=== PATIENT | female | born 1980 | race Caucasian/White ===

== ENCOUNTER 2019-08-29 07:00 | Inpatient (IN) | payer OTHER, SELFPAY ==
[2016-09-05 02:28] VITALS: BMI 22.6
[2019-08-29 07:19] VITALS: BMI 22.3
[2019-08-29] MEDS: Lactated Ringers 1,000 ML 50 ML IV (07:45)
[2019-08-29] MEDS: Cefazolin 2 GM in 0.9% Normal Saline 100 ML IV (07:53)
[2019-08-29 08:12] LABS: Absolute Lymphocyte Count 2.05 X10^3/uL (0.83-4.51); Absolute Neutrophil Count 6.5 X10^3/uL (2.0-7.7); Basophil# 0.02 X10^3/uL; Basophil% 0.2 % (0-1); Eosinophil# 0.04 X10^3/uL; Eosinophils% 0.4 % (0-5); Hemoglobin 12.4 g/dL (12.0-15.0); Lymphocyte # 2.05 X10^3/ul (4.0); Lymphocyte % 22.6 % (19-41); Mean Corp Hgb Conc 34.4 g/dL (32-36); Mean Corpuscular Volume 87.2 fL (81-99); Mean Platelet Vol. 10.6 fl (6.2-12.0); Monocyte# 0.45 X10^3/uL; NRBC Flagged by Analyzer 0 % (0-5); Neutrophil # 6.45 X10^3/uL (2.7-7.7); Neutrophil % 71.1 % (47-70); Platelet Count 196 K/mm3 (150-450); RBC Distribution Width CV 12.1 % (11.6-14.6); RBC Distribution Width SD 38.9 fl (35.1-43.9); Red Blood Count 4.13 M/mm3 (4.2-5.4); White Blood Count 9.1 K/mm3 (4.4-11.0)
--- NOTE | 2019-08-29 09:32 | HP.PCM_ITS ---
- Problem List (1) Advanced maternal age (AMA), 40 years or greater Status: Acute (2) History of precipitous delivery Status: Acute (3) SS-A antibody positive Status: Acute (4) Encounter for induction of labor Status: Acute History Date of Admission: 08/29/19 Final MAGGIE: 09/01/19 Final MAGGIE Source: LMP Gestational age: 39 Weeks and 4 Days History of this : This is a 38 year-old, G [4], P [3003], at 39 weeks gestational age. Presents for induction of labor due to advanced maternal age. Offers no complaints today. normal course. Allergies amoxicillin [Amoxicillin] Allergy (Verified 09/05/16 05:13) Rash Home Medications: Home Medications Vits [Prenatabs FA ] 1 tab PO DAILY 11/05/13 Smoking Status: Never smoker Alcohol: None Number of Fetus(es): 1 NST - FHR Rate Baby A Baseline: 125 Variability:: Minimal Accelerations:: 15 x 15 Decelerations:: None NST Reactive:: Yes FHR Category:: Category II Uterine Activity:: Irregular, palpate mild History Past Pregnancies: Past Pregnancies Delivery Date Name GA/ Weeks Outcome Route Wt Sex Labor Length Anesthesia Delivery Location Provider FOB Labs: Mom's Labs & Results 08/29/19 08/29/19 07:45 07:45 WBC 9.1 RBC 4.13 L Hgb 12.4 Hct 36.0 L MCV 87.2 MCH 30.0 MCHC 34.4 RDW Std Deviation 38.9 RDW Coeff of Lauren 12.1 Plt Count 196 MPV 10.6 Immature Gran % (Auto) 0.700 Neut % (Auto) 71.1 H Lymph % (Auto) 22.6 [place] % (Auto) 5.0 Eos % (Auto) 0.4 Baso % (Auto) 0.2 Absolute Neuts (auto) 6.5 Absolute Lymphs (auto) 2.05 Nucleated RBC % 0 Blood Type O NEGATIVE Antibody Screen NEGATIVE Course Did the patient receive Yes care? Labs Blood Type: O RH: NEGATIVE RPR/VDRL/Syphilis Nonreactive Rubella status Immune HbSAg Negative Date Done: 02/19/19 Chlamydia Negative Gonorrhea Negative HIV/AIDS Non-Reactive Group B Strep: Positive Current Obstetrical History Gestational Diabetes No Incompetent Cervix No Infertility No IUGR No Macrosomia No Hypertension/Pre-eclampsia No Placenta Previa/Abruption No PTL/PROM No Uterine anomaly No Oligohydramnios No Polyhydramnios No Multiple gestation No Past Medical History Asthma No Diabetes No Hypertension No Heart disease No Mitral valve prolapse No Neurologic/Seizure disorder/ No Migraines Kidney disease No Liver disease No Varicosities Yes: left leg Clotting disorders/Hx of DVT No Thyroid Dysfunction No Other medical diseases No Psychiatric disorders No Major trauma No Abnormal PAP smear No Sleep apnea No Mammogram in the last 2 years No Social History Marital Status: Alleged father Romulo Freeze Hx Smoking No Smoking Status Never smoker Review of Systems Constitutional: Denies: Chills, Fever, Weight Change HEENT: Denies: Head Aches, Sinus Congestion, Sinus Drainage Cardiovascular: Denies: Chest Pain, Palpitations Respiratory: Denies: Cough, Shortness of breath at rest, Sputum production Gastrointestinal: Denies: Abdominal Pain, Nausea, Vomiting Genitourinary: Denies: Dysuria Neurological: Denies: Numbness, Tingling, Focal weakness Psychiatric: Denies: Anxiety, Depression, Homicidal Ideations, Suicidal Ideations Physical Exam General: Alert, Oriented x3, No apparent distress HEENT: Atraumatic, Normocephalic Cardiovascular: Regular rate, Regular Rhythm, No murmurs Lungs: Clear to auscultation, Normal air movement, No rhonchi, No wheeze Abdomen: Bowel Sounds Present, Gravid Extremities:: No edema Neurological: Deep Tendon Reflexes 2+/4 and Symmetrical. Negative for: Clonus [employer]: Normal external genitalia Estimated gestational size: Appropriate for gestational size Presentation: Cephalic Cervix Dilation (cm): 5 - AROM for moderate amount of clear fluid Station: -1 Effacement (%): 70 Assessment/Plan All Active Problems Advanced maternal age (AMA), 40 years or greater (Acute) History of precipitous delivery (Acute) SS-A antibody positive (Acute) Encounter for induction of labor (Acute) This is a 38 year-old, G [4], P [3003], at 39 weeks gestational age. Category 1 FHT Induction of labor due to Advanced Maternal Age P: 1) Admit to L&D. Routine labs. 2) Reviewed options for induction of labor, patient requesting AROM with nipple stimulation. Does not want to start Pitocin at this time. 3) Planning unmedicated . Positional changes, shower, nitrous oxide 4) notified of patient status and induction of labor. 5) GBS positive. Allergic to Amoxicillin, rash. Will give Ancef for GBS prophylaxis.
--- NOTE | 2019-08-29 13:11 | PN.OBGYN_ITS ---
Subjective: Sitting up at bedside. Feeling some contractions with nipple stimulation but not uncomfortable. at bedside. Objective: 120, moderate variability, accels, Category 1 TOCO: Irregular, mild contractions Cervix: 5.5cm/70%/0 - Physical Exam Vitals/I&O's: Weight: 169 lb Body Mass Index (BMI) 22.3 Intake and Output for Last 24 Hours 08/27/19 08/28/19 08/29/19 23:59 23:59 23:59 Intake Total 316.67 / 316.67 Output Total 550 / 550 Balance -233.33 / -233.33 Laboratory Results 08/29/19 07:45: WBC 9.1, RBC 4.13 L, Hgb 12.4, Hct 36.0 L, MCV 87.2, MCH 30.0, MCHC 34.4, RDW Std Deviation 38.9, RDW Coeff of Lauren 12.1, Plt Count 196, MPV 10.6, Immature Gran % (Auto) 0.700, Neut % (Auto) 71.1 H, Lymph % (Auto) 22.6, [place] % (Auto) 5.0, Eos % (Auto) 0.4, Baso % (Auto) 0.2, Absolute Neuts (auto) 6.5, Absolute Lymphs (auto) 2.05, Nucleated RBC % 0 08/29/19 07:45: Blood Type O NEGATIVE, Antibody Screen NEGATIVE Current Medications Acetaminophen (Tylenol) 325 - 650 mg PO Q4H PRN PRN PRN Reason: Pain Score 1-3/10 Al Hydroxide/Mg Hydroxide (Mylanta Ii) 15 - 30 ml PO Q4H PRN PRN PRN Reason: INDIGESTION Citric Acid/Sodium Citrate (Bicitra) 30 ml PO X1 PRN PRN Reason: Section Lactated Ringer's () 500 mls @ 999 mls/hr IV .Q31M PRN PRN Reason: Epidural Lactated Ringer's () 500 mls @ 999 mls/hr IV .Q31M PRN PRN Reason: Corrective Measures Lactated Ringer's () 1,000 mls @ 50 mls/hr IV .Q20H IVETT Last Infusion: 08/29/19 08:37 Dose: 50 mls/hr Documented by: Oxytocin/Sodium Chloride () 30 units in 500 mls @ 2 mls/hr IV .Q250H IVETT Cefazolin Sodium 2 gm/ Sodium (Chloride) 110 mls @ 150 mls/hr IV Q8H [facility] Last Infusion: 08/29/19 08:37 Dose: Infused Documented by: Nalbuphine HCl (Nubain) 5 - 10 mg IV Q3H PRN PRN PRN Reason: Pain Score 4-10/10 Nalbuphine HCl (Nubain) 5 - 10 mg SC Q3H PRN PRN PRN Reason: Pain Score 4-10/10 Ondansetron HCl (Zofran) 4 mg IV Q4H PRN PRN PRN Reason: NAUSEA Prochlorperazine Edisylate (Compazine Iv) 10 mg IV Q6H PRN PRN PRN Reason: NAUSEA Sodium Chloride () 10 - 40 ml IV X1 PRN PRN Reason: SALINE FLUSH Medical Necessity - Tobacco Use Smoking Status: Never smoker Assessment/Plan A:Induction of labor GBS positive Category 1 FHT P: 1) Discussed with patient option for continued expectant management vs. active management with pitocin. Has tried nipple stimulation without producing regular contraction pattern. Patient tearful as she desired unmedicated . Reviewed risks vs. benefits and options. She is agreeable to pitocin at this time. Emotional support provided. 2) Shower, positional changes, Nitrous oxide for pain relief.
[2019-08-29] MEDS: Oxytocin 30 units/NS 500 ml 30 UNITS/500 ML IV.SOLN IV (13:55)
[2019-08-29] MEDS: Lactated Ringers 500 ML 999 ML IV (16:40)
[2019-08-29] MEDS: Oxytocin 30 units/NS 500 ml 30 UNITS/500 ML IV.SOLN 334 UNITS IV (17:05)
--- NOTE | 2019-08-29 17:50 | PCM.OPRPT ---
Problem List (1) Advanced maternal age (AMA), 40 years or greater Status: Acute (2) History of precipitous delivery Status: Acute (3) SS-A antibody positive Status: Acute (4) Encounter for induction of labor Status: Acute (5) Vaginal delivery Status: Acute (6) Obstetric labial laceration, delivered, current hospitalization Status: Acute Vaginal Delivery Maternal Presentation: Medically Indicated Induction Method of Induction: Amniotomy Amniotic Membrane Rupture Type: Artificial Amniotic Fluid Description: Clear Final MAGGIE: 09/01/19 Final MAGGIE Source: LMP Gestational age: 39 Weeks and 4 Days Date of Procedure: 08/29/19 Pre-Operative Diagnosis: Induction of Labor Post-Operative Diagnosis: Surgery/ Procedure Performed: Spontaneous Vaginal Delivery Type of Anesthesia: None Description of Procedure: Called to hospital with patient feeling urge to push. Cervix 6.5cm. Patient with increased vaginal pressure. Coping well with nitrous oxide. Labored with patient through 2 sets of contractions and patient with strong urge to push. Rapid dilation to complete and +2 station and strong urge to push. of viable male infant over left labial laceration. APGARS 8,9. head delivered spontaneously, shoulders forthcoming. placed on maternal abdomen, spontaneous cry. Mouth and nares wiped for secretion. Delayed cord clamping. Cord clamped and cut after pulsations ceased by father of baby. Pitocin started for active 3rd stage management. Placenta delivered spontaneously, intact, 3 vessel cord via altaf. Fundus firm. Perineum inspected and revealed left labial laceration, repaired without analgesia with 3.0 rapide, tolerated well. Hemostasis achieved, EBL 200ml. Mom and baby stable, family bonding well. Planning to breastfeed. notified of patient status. Presentation: Vertex Placental Delivery Description: Spontaneous Placenta Disposition: [facility] Cord Vessel Description: 3 Vessels Cord Entanglement: None Estimated Blood Loss: 200ml A gender: Male (1 minute): 8 (5 minute): 9 Episiotomy Description: None Laceration: Perineal Extension/lac - left labial laceration Medications given after delivery: IV Pitocin Complications: None
[2019-08-29 19:40] VITALS: BP 138/74; PULSE 86; RESP 16; TEMP 37.2
[2019-08-29] MEDS: 0.9% Saline Lock 10 ML Syringe IV (19:45)
[2019-08-30] VITALS: BP 119/58; PULSE 76; RESP 16; TEMP 36.7
[2019-08-30 03:52] VITALS: BP 126/66; PULSE 86; RESP 16; TEMP 37.2
[2019-08-30 06:00] LABS: Hematocrit 35.2 % (37-47); Hemoglobin 12.2 g/dL (12.0-15.0); Mean Corp Hgb Conc 34.7 g/dL (32-36); Mean Corpuscular Hgb 30.5 pg (27.0-32.0); Mean Platelet Vol. 10.1 fl (6.2-12.0); Platelet Count 176 K/mm3 (150-450); RBC Distribution Width CV 12.2 % (11.6-14.6); RBC Distribution Width SD 39.1 fl (35.1-43.9); White Blood Count 10.7 K/mm3 (4.4-11.0)
[2019-08-30 08:00] VITALS: BP 122/72; PULSE 64; RESP 12; TEMP 36.6
[2019-08-30 12:00] VITALS: BP 111/75; PULSE 65; RESP 16; TEMP 36.6
[2019-08-30 16:00] VITALS: BP 120/76; PULSE 77; RESP 16; TEMP 36.4
--- NOTE | 2019-08-30 18:20 | PCM.PN.OB ---
Patient Problems: Active and Suspected Problems Advanced maternal age (AMA), 40 years or greater (Acute) History of precipitous delivery (Acute) SS-A antibody positive (Acute) Encounter for induction of labor (Acute) Vaginal delivery (Acute) Obstetric labial laceration, delivered, current hospitalization (Acute) Subjective: Doing well per patient and nursing staff. Ambulating and taking PO without difficulty. Voiding and passing flatus. without difficulty. Planning D/C home tomorrow. - Physical Exam Vitals/I&O's: Vital Signs Temp Pulse Resp BP 97.6 F L 77 16 120/76 08/30/19 16:00 08/30/19 16:00 08/30/19 16:00 08/30/19 16:00 Oxygen Delivery Method Room Air Weight: 169 lb Body Mass Index (BMI) 22.3 Intake and Output for Last 24 Hours 08/28/19 08/29/19 08/30/19 23:59 23:59 23:59 Intake Total 1632.12 / 1632.12 Output Total 550 / 550 Balance 1082.12 / 1082.12 General: Alert, Oriented x3 HEENT: Atraumatic, Normocephalic Neck: Trachea Midline Lungs: Clear to auscultation, Normal air movement, No rhonchi, No wheeze Cardiovascular: Regular rate, Regular Rhythm, No murmurs Abdomen: Soft, - - Fundus firm 2 below U Extremities: No edema Psych/Mental Status: Normal Affect, Appropriate Laboratory Results 08/30/19 05:50: WBC 10.7, RBC 4.00 L, Hgb 12.2, Hct 35.2 L, MCV 88.0, MCH 30.5, MCHC 34.7, RDW Std Deviation 39.1, RDW Coeff of Lauren 12.2, Plt Count 176, MPV 10.1 08/30/19 05:50: Screen NEGATIVE, Baby's Blood Type O POSITIVE, Baby's KAT NEGATIVE Current Medications Acetaminophen (Tylenol) 1,000 mg PO Q8H PRN PRN PRN Reason: Pain Score 1-3/10 Bisacodyl (Dulcolax) 10 mg RECTAL UD PRN PRN Reason: If no BM Dextrose (D50w Syringe) 0 gm IV X1 PRN; Protocol PRN Reason: Hypoglycemia Dibucaine (Dibucaine) 1 applic TOPICAL TID PRN PRN; Protocol PRN Reason: Discomfort Glucagon () 1 mg IM .X1 PRN PRN Reason: Hypoglycemia Hydrocortisone (Hytone) 1 applic TOPICAL TID PRN PRN; Protocol PRN Reason: Discomfort Ibuprofen (Motrin) 600 mg PO Q6H PRN PRN PRN Reason: Pain Score 1-3/10 Methylergonovine Maleate (Methergine) 0.2 mg IM X1 PRN PRN Reason: Excess bleeding/uterine atony Ondansetron HCl (Zofran) 4 mg IV Q4H PRN PRN PRN Reason: Nausea Multivit/Folic Acid/Iron (Prenatabs Fa) 1 tablet PO DAILY@1200 IVETT Last Admin: 08/30/19 14:56 Dose: Not Given Documented by: Senna/Docusate Sodium (Senokot-S, Yessi-Colace) 1 - 2 tablet PO DAILY PRN PRN PRN Reason: Constipation Simethicone (Mylicon) 80 mg PO PCHS PRN PRN Reason: Indigestion/Stomach pain Sodium Chloride () 5 - 15 ml IV UD PRN PRN Reason: SALINE FLUSH Last Admin: 08/29/19 19:45 Dose: 5 ml Documented by: Medical Necessity - Tobacco Use Smoking Status: Never smoker Assessment/Plan All Active Problems Advanced maternal age (AMA), 40 years or greater (Acute) History of precipitous delivery (Acute) SS-A antibody positive (Acute) Encounter for induction of labor (Acute) Vaginal delivery (Acute) Obstetric labial laceration, delivered, current hospitalization (Acute) A:PPD #1 P: 1) Routine care 2) Hgb stable 3) Planning D/C home tomorrow 4) Pain management
[2019-08-30 20:20] VITALS: BP 120/72; PULSE 87; RESP 18; TEMP 36.5; O2SAT 96
[2019-08-31 01:37] VITALS: BP 107/56; PULSE 65; RESP 14; TEMP 36.4
[2019-08-31 08:36] VITALS: BP 109/74; PULSE 89; RESP 18; TEMP 36.4
--- NOTE | 2019-08-31 11:34 | PCM.PN.OB ---
Patient Problems: Active and Suspected Problems Advanced maternal age (AMA), 40 years or greater (Acute) History of precipitous delivery (Acute) SS-A antibody positive (Acute) Encounter for induction of labor (Acute) Vaginal delivery (Acute) Obstetric labial laceration, delivered, current hospitalization (Acute) Subjective: Doing well per patient and nursing staff. Ambulating and taking PO without difficulty. Ambulating and taking PO without difficulty. Voiding and passing flatus. Pain controlled. Denies chest pain, shortness of breath, leg pain, increased vaginal bleeding or clots. without difficulty. Planning D/C home today. - Physical Exam Vitals/I&O's: Vital Signs Temp Pulse Resp BP Pulse Ox 97.6 F L 89 18 109/74 96 08/31/19 08:36 08/31/19 08:36 08/31/19 08:36 08/31/19 08:36 08/30/19 20:20 Oxygen Delivery Method Room Air Weight: 169 lb Body Mass Index (BMI) 22.3 Intake and Output for Last 24 Hours 08/29/19 08/30/19 08/31/19 23:59 23:59 23:59 Intake Total 1632.12 / 1632.12 Output Total 550 / 550 Balance 1082.12 / 1082.12 General: Alert, Oriented x3, Cooperative HEENT: Atraumatic, Normocephalic Neck: Trachea Midline Lungs: Clear to auscultation, Normal air movement, No rhonchi, No wheeze Cardiovascular: Regular rate, Regular Rhythm, No murmurs Abdomen: Bowel Sounds Present, - - fundus firm 3 below U Extremities: No edema Psych/Mental Status: Normal Affect, Appropriate Current Medications Acetaminophen (Tylenol) 1,000 mg PO Q8H PRN PRN PRN Reason: Pain Score 1-3/10 Bisacodyl (Dulcolax) 10 mg RECTAL UD PRN PRN Reason: If no BM Dextrose (D50w Syringe) 0 gm IV X1 PRN; Protocol PRN Reason: Hypoglycemia Dibucaine (Dibucaine) 1 applic TOPICAL TID PRN PRN; Protocol PRN Reason: Discomfort Glucagon () 1 mg IM .X1 PRN PRN Reason: Hypoglycemia Hydrocortisone (Hytone) 1 applic TOPICAL TID PRN PRN; Protocol PRN Reason: Discomfort Ibuprofen (Motrin) 600 mg PO Q6H PRN PRN PRN Reason: Pain Score 1-3/10 Methylergonovine Maleate (Methergine) 0.2 mg IM X1 PRN PRN Reason: Excess bleeding/uterine atony Ondansetron HCl (Zofran) 4 mg IV Q4H PRN PRN PRN Reason: Nausea Multivit/Folic Acid/Iron (Prenatabs Fa) 1 tablet PO DAILY@1200 IVTET Last Admin: 08/30/19 14:56 Dose: Not Given Documented by: Senna/Docusate Sodium (Senokot-S, Yessi-Colace) 1 - 2 tablet PO DAILY PRN PRN PRN Reason: Constipation Simethicone (Mylicon) 80 mg PO PCHS PRN PRN Reason: Indigestion/Stomach pain Sodium Chloride () 5 - 15 ml IV UD PRN PRN Reason: SALINE FLUSH Last Admin: 08/29/19 19:45 Dose: 5 ml Documented by: Medical Necessity - Tobacco Use Smoking Status: Never smoker Assessment/Plan All Active Problems Advanced maternal age (AMA), 40 years or greater (Acute) History of precipitous delivery (Acute) SS-A antibody positive (Acute) Encounter for induction of labor (Acute) Vaginal delivery (Acute) Obstetric labial laceration, delivered, current hospitalization (Acute) A:PPD #2 Labial laceration P: 1) Routine discharge and instructions 2) Pain controlled, denies prescription for Motrin 3) Follow up in 2 weeks and 6 weeks for care
--- NOTE | 2019-08-31 11:42 | DCINST_ITS ---
Discharge Diet: No Restrictions Discharge Activity: Return to Normal Activity, May not drive while taking narcotic pain medications., May Shower May resume sexual activity in: 4-6 weeks Weight Bearing Status: Full weight bearing Additional Activity Instructions:: Nothing in the vagina for 4-6 weeks. You may return to work/school in 6 weeks. Call your doctor if your incision/area has: Continuous Slow Oozing, Sudden Increased Bleeding, Increased Pain/ Swelling, Increased Redness, Foul Smelling Discharge Call your doctor if you observe: Fever of 101 or Higher, Inability to urinate, Inability to have a bowel movement, Using more than one pad per hour, Shortness of breath, Chest pain, Increased palpitations (irregular heartbeat), Calf discomfort, Uncontrolled pain Instructions: After a Vaginal , Common Questions About , at Home Additional Instructions: If you experience any of the following, contact your healthcare provider. * Bleeding that soaks a pad every hour for 2 hours * Fever 100.4 or higher * Unrelieved incision or abdominal pain * Swelling, redness, discharge or bleeding from your incision or episiotomy site * Your incision begins to separate * Problems urinating (including inability to urinate or burning while urinating). * Visual changes * Severe headache * Flu-like symptoms * Pain or redness in one of both of your breasts * Pain, warmth, tenderness or swelling in your legs, especially the calf area * Frequent nausea and vomiting * Symptoms of depression or anxiety If you experience any of the following, call 911 or go to the nearest Emergency Room. * Chest pain * Problems breathing * Seizure activity * Partial or complete paralysis of a body part, slurred speech, weakness or drooping of the face, or a sudden inability to walk or hold your balance Allergies/Adverse Reactions: Allergies amoxicillin [Amoxicillin] Allergy (Verified 09/05/16 05:13) Rash Medications to take at Discharge Vits [Prenatabs FA ] 1 tab PO DAILY 11/05/13 Please Follow Up With: Aby Kemp CNM When: Call to make an appointment with your doctor in 6 weeks. If you had elevated Blood Pressure or 4th degree laceration you will need to be seen in 2 weeks. Primary Care Physician: Care Physician,No Primary [Primary Care Provider] - Test Results: Test results from this visit will be discussed in further detail at your follow- up appointment, if applicable.
[2019-08-31 14:01] VITALS: BP 130/76; RESP 14; TEMP 36.6
[2019-08-31] MEDS: Prenatal Vits Tablet 1 TABLET PO (14:09)
== END 2019-08-31 17:05 | disposition home or self-care (01) | DRG 807 ==
PROVIDERS: Obstetrics & Gynecology; Admitting Provider Advanced Practice Midwife; Referring Provider Advanced Practice Midwife; Visit Provider Advanced Practice Midwife
DX: O70.0 First degree perineal laceration during delivery (principal); Z37.0 Single live birth; O99.824 Streptococcus B carrier state complicating childbirth; Z88.0 Allergy status to penicillin; Z3A.39 39 weeks gestation of pregnancy
CPT/HCPCS: 59025; 59050; 85025; 85027; 85461; 86850; 86900; 86901; 90384; 99218; J7120; A4216; G0378; J2790